=== PATIENT | female | born 1980 | race Caucasian/White ===

== ENCOUNTER → 2017-01-08 | Outpatient (CLI) | payer OTHER ==
[~2017-01-08] MED LIST: ADVIL200 M2 PO; FLEXERIL PO; IMPLANON68 MG/IMPL SQ; KEFLEX500 MG PO; MOTRIN600 M1; NAPROSYN250 M1 PO; NO MEDICATIONS; ULTRAM PO; VICODIN 5/1 TAB 5/50 PO; VOLTAREN75 MG PO
--- NOTE | ~2017-01-08 | CR141 ---
[facility]. [facility] A Service of [facility] & [facility] RADIOLOGY TEXT RESULTS PATIENT: MARINA CH LOCATION: [facility] : [birth year] UNIT #: [id number] AGE: [address]: Star Hazel MD SEX: F ORDER DR: [id number] [address] [address] [id number] O MR#: [id number] Acc #: [id number] NAME: MARINA CH : 1980 SEX: F STUDY DATE/TIME: 01/08/2017 16:12 UNIT: [facility] ROOM: STUDY DESCRIPTION: CR Hand Min 3 Views Lt Attending Physician: Star Hazel M.D. Ordering Physician: Star Hazel M.D. Primary Care Physician: Primary Care Physician No MEDICAL IMAGING REPORT This report is preliminary unless electronic signature is present. EXAM Left hand, 01/08 INDICATION Hand pain and swelling for 9 days after getting hand caught in a bucket. Prior history of fifth metacarpal surgery. FINDINGS 3 views of the left hand are compared with 05/05/2015. Surgical pin remains in the fifth metacarpal. It is unchanged in position. There is an old distal fifth metacarpal fracture. No acute fracture or malalignment is seen. Soft tissues are unremarkable. IMPRESSION No acute findings in the hand. Old post-traumatic and postsurgical change noted in the fifth metacarpal. Dictated by... Tho Palomino Jr., M.D. THIS IS AN ELECTRONICALLY VERIFIED REPORT Tho Palomino Jr., M.D. at 01/09/2017 4:59 PM STEFANIA/pura TD: 01/09/2017 12:25 JOB #: [id number] MEDICAL IMAGING REPORT Page 1 of 1
== END | disposition home or self-care (01) ==
LOC: SRAD 16:04
DX: M79.642 Pain in left hand (principal); M79.89 Other specified soft tissue disorders
CPT/HCPCS: 73130